=== PATIENT | male | born 1985 | race Two or more races ===

== ENCOUNTER 2024-04-12 06:23 | Emergency (ER) | payer OTHER ==
[~2024-04-12] VITALS: Ht 160 cm; Wt 79.5 kg
[2024-04-12 06:45] VITALS: BP 139/88; PULSE 99; RESP 18; O2SAT 97
== END 2024-04-12 07:52 | disposition left against medical advice (07) ==
LOC: ER 06:23
DX: J02.9 Acute pharyngitis, unspecified (principal); Z53.21 Procedure and treatment not carried out due to patient leaving prior to being seen by health care provider